=== PATIENT | male | born 1990 | race Native Hawaiian/Other Pacific Islander ===

== ENCOUNTER 2016-12-22 01:10 | Emergency (ER) | payer OTHER ==
[2016-12-22 01:23] VITALS: BP 121/62; PULSE 84; RESP 17; TEMP 98.7; O2SAT 98
--- NOTE | 2016-12-22 02:28 | ED PDOC ---
HPI: Psych/Substance Abuse Time Seen by Provider: 12/22/16 01:20 Chief Complaint (Nursing): Psychiatric Evaluation Chief Complaint (Provider): Suicidal Ideation History/Exam Limitations: no limitations Onset/Duration Of Symptoms: Hrs (earlier tonight) Suicide/Self Injury Attempted (Context): None Modifying Factor(s): Alcohol Additional Complaint(s): 26 year old male brought in by police presents to ED with complaints of suicidal ideation and has a past medical history of depression (compliant with medication). Patient admits to drinking and states that he drunkenly spoke of suicidal ideation to his roommate, who called the police. Police confirm they brought patient to ED for psychiatric evaluation after claims of suicidal ideation. Patient denies suicide attempt by ingestion and notes that he often speaks of suicide when intoxicated. PCP: [facility] Past Medical History Reviewed: Historical Data Vital Signs: Last Vital Signs Temp 98.7 F 12/22/16 01:17 Pulse 84 12/22/16 01:17 Resp 17 12/22/16 01:17 BP 121/62 12/22/16 01:17 Pulse Ox 98 12/22/16 01:17 - Medical History PMH: Depression Denies: Chronic Kidney Disease - Surgical History Surgical History: No Surg Hx - Family History Family History: States: No Known Family Hx - Social History Alcohol: Social - Allergies Allergies/Adverse Reactions: Allergies Allergy/AdvReac Type Severity Reaction Status Date / Time No Known Allergies Allergy Verified 12/22/16 01:23 Review of Systems ROS Statement: Except As Marked, All Systems Reviewed And Found Negative Psych: Positive for: Suicidal ideation. Negative for: Other ((-) suicide attempt) Physical Exam - Reviewed Nursing Documentation Reviewed: Yes Vital Signs Reviewed: Yes - Physical Exam Appears: Positive for: No Acute Distress. Negative for: Uncomfortable Skin: Positive for: Normal Color, Warm, Dry Eye Exam: Positive for: EOMI, Normal appearance, PERRL ENT: Positive for: Normal ENT Inspection Neck: Positive for: Normal, Painless ROM, Supple Cardiovascular/Chest: Positive for: Regular Rate, Rhythm Respiratory: Positive for: Normal Breath Sounds. Negative for: Respiratory Distress Gastrointestinal/Abdominal: Positive for: Normal Exam, Soft, Tenderness Back: Positive for: Normal Inspection Extremity: Positive for: Normal ROM. Negative for: Deformity Neurologic/Psych: Positive for: Alert, Oriented, Gait (steady). Negative for: Motor/Sensory Deficits, Aphasia (no slurred speech) - Laboratory Results Result Diagrams: 12/22/16 02:19 12/22/16 02:19 - ECG O2 Sat by Pulse Oximetry: 98 (RA) Pulse Ox Interpretation: Normal Medical Decision Making Medical Decision Makin Initial impression: depression, alcohol intoxication Initial plan: * Acetaminophen * EtOH serum * Labs * UDrug serum * Salicylate * Crisis eval * US Pt is cleared for discharge by Dr Roberson. Pt is alert and awake. Ambulatory with steady gait. Scribe Attestation: Documented by Jennifer Grady acting as a scribe for Haven Hyde MD. Scribe Attestation: All medical record entries made by the Scribe were at my direction and personally dictated by me. I have reviewed the chart and agree that the record accurately reflects my personal performance of the history, physical exam, medical decision making, and the department course for this patient. I have also personally directed, reviewed, and agree with the discharge instructions and disposition. Disposition - Clinical Impression Clinical Impression: Depression, Alcohol intoxication - Patient ED Disposition Is Patient to be Admitted: No Doctor Will See Patient In The: Office Counseled Patient/Family Regarding: Studies Performed, Diagnosis, Need For Followup - Disposition [facility]errals[facility] Disposition: Routine/Home Disposition Time: 05:14 Condition: GOOD Instructions: Depression (ED), Alcohol Intoxication (ED)
[2016-12-22 02:31] LABS: BASO # 0.1 K/uL (0.0-0.2); BASO % 1.2 % (0.0-2.0); EOS # 0.2 K/uL (0.0-0.7); EOS % 3.5 % (0.0-4.0); HEMATOCRIT 46.4 % (35.0-51.0); LYMPH # 2.1 K/uL (1.0-4.3); LYMPH % 34.8 % (20.0-40.0); MEAN CELL VOLUME 96.8 fl (80.0-94.0); MEAN CORPUSCULAR HEMOGLOBIN 32.6 pg (27.0-31.0); MEAN CORPUSCULAR HGB CONC 33.7 g/dL (33.0-37.0); MONO # 0.5 K/uL (0.0-0.8); MONO % 8.1 % (0.0-10.0); NEUT # 3.2 K/uL (1.8-7.0); NEUT % 52.4 % (50.0-75.0); WHITE BLOOD COUNT 6.1 K/uL (4.8-10.8)
[2016-12-22 02:34] LABS: RBC URINE < 1 /hpf (0-3); URINE BILIRUBIN NEGATIVE (NEGATIVE); URINE BLOOD NEGATIVE (NEGATIVE); URINE COLOR COLORLESS (YELLOW); URINE GLUCOSE (UA) 50 mg/dL (Normal); URINE KETONE NEGATIVE (NEGATIVE); URINE LEUKOCYTE ESTERASE NEG Leu/uL (Negative); URINE PROTEIN NEGATIVE (NEGATIVE); URINE UROBILINOGEN 0.2-1.0 mg/dL (0.2-1.0); WBC URINE < 1 /hpf (0-5)
[2016-12-22 02:46] LABS: ALCOHOL SERUM 205 mg/dl (0-10); BLOOD UREA NITROGEN 12 mg/dl (9-20); CALCIUM 8.9 mg/dL (8.4-10.2); CARBON DIOXIDE 21 mmol/L (22-30); CHLORIDE 109 mmol/L (98-107); GFR AFRICAN-AMERICAN > 60; GLUCOSE,RANDOM 94 mg/dL (75-110); POTASSIUM 3.9 MMOL/L (3.6-5.0); SODIUM 148 mmol/l (132-148)
== END 2016-12-22 05:21 | disposition home or self-care (01) ==
LOC: H.ER 01:10
DX: F32.9 Major depressive disorder, single episode, unspecified (principal); F10.129 Alcohol abuse with intoxication, unspecified; R45.851 Suicidal ideations; Y90.7 Blood alcohol level of 200-239 mg/100 ml

== ENCOUNTER 2016-12-23 01:30 | Emergency (ER) | payer OTHER ==
[2016-12-23 01:38] VITALS: BMI 28.7
[2016-12-23 02:39] LABS: BASO % 0.4 % (0.0-2.0); EOS # 0.1 K/uL (0.0-0.7); EOS % 2.7 % (0.0-4.0); HEMATOCRIT 48.1 % (35.0-51.0); LYMPH # 2.2 K/uL (1.0-4.3); LYMPH % 41.8 % (20.0-40.0); MEAN CELL VOLUME 96.9 fl (80.0-94.0); MEAN CORPUSCULAR HEMOGLOBIN 31.8 pg (27.0-31.0); MEAN CORPUSCULAR HGB CONC 32.8 g/dL (33.0-37.0); MEAN PLATELET VOLUME 7.3 fl (7.2-11.7); MONO # 0.4 K/uL (0.0-0.8); MONO % 7.6 % (0.0-10.0); NEUT # 2.5 K/uL (1.8-7.0); NEUT % 47.5 % (50.0-75.0); RED CELL DISTRIBUTION WIDTH 13.8 % (11.5-14.5); WHITE BLOOD COUNT 5.4 K/uL (4.8-10.8)
[2016-12-23 02:46] LABS: ALCOHOL SERUM 285 mg/dl (0-10); BLOOD UREA NITROGEN 15 mg/dl (9-20); CALCIUM 9.1 mg/dL (8.4-10.2); CARBON DIOXIDE 21 mmol/L (22-30); CHLORIDE 106 mmol/L (98-107); GFR AFRICAN-AMERICAN > 60; GLUCOSE,RANDOM 77 mg/dL (75-110); POTASSIUM 3.8 MMOL/L (3.6-5.0); SODIUM 146 mmol/l (132-148)
--- NOTE | 2016-12-23 03:05 | ED PDOC ---
HPI: Psych/Substance Abuse Time Seen by Provider: 12/23/16 01:37 Chief Complaint (Nursing): Psychiatric Evaluation Chief Complaint (Provider): Psychiatric Evaluation History Per: Patient History/Exam Limitations: intoxication Onset/Duration Of Symptoms: Days (x1) Current Symptoms Are (Timing): Still Present Modifying Factor(s): Alcohol Associated Symptoms: Suicidal Thoughts Additional History Per: EMS Additional Complaint(s): Ariel is a 26 y/o male who was brought to the ED by EMS for alcohol intoxication and complaints of suicidal ideation. He does not have a plan. Patient admits to drinking alcohol. PMD: None Past Medical History Reviewed: Historical Data, Nursing Documentation, Vital Signs Vital Signs: Last Vital Signs Temp 97.5 F L 12/23/16 01:40 Pulse 86 12/23/16 01:40 Resp 17 12/23/16 01:40 BP 124/68 12/23/16 01:40 Pulse Ox 97 12/23/16 01:40 - Medical History PMH: Depression Denies: Diabetes, Hepatitis, HIV, HTN, Chronic Kidney Disease, Seizures, Sexually Transmitted Disease - Surgical History Surgical History: No Surg Hx - Family History Family History: States: Unknown Family Hx - Social History Alcohol: > 2 Drinks/Day - Allergies Allergies/Adverse Reactions: Allergies Allergy/AdvReac Type Severity Reaction Status Date / Time No Known Allergies Allergy Verified 12/22/16 01:23 Review of Systems ROS Statement: Except As Marked, All Systems Reviewed And Found Negative Psych: Positive for: Suicidal ideation Physical Exam - Reviewed Nursing Documentation Reviewed: Yes Vital Signs Reviewed: Yes - Physical Exam Appears: Positive for: Non-toxic, No Acute Distress Head Exam: Positive for: ATRAUMATIC, NORMAL INSPECTION, NORMOCEPHALIC Skin: Positive for: Normal Color, Warm, Dry Eye Exam: Positive for: EOMI, Normal appearance, PERRL Neck: Positive for: Normal, Painless ROM, Supple Cardiovascular/Chest: Positive for: Regular Rate, Rhythm. Negative for: Murmur Respiratory: Positive for: Normal Breath Sounds. Negative for: Respiratory Distress Pulses-Radial (L): 2+ Pulses-Radial (R): 2+ Gastrointestinal/Abdominal: Positive for: Normal Exam, Soft. Negative for: Tenderness Back: Positive for: Normal Inspection. Negative for: L CVA Tenderness, R CVA Tenderness, Vertebral Tenderness Extremity: Positive for: Normal ROM. Negative for: Pedal Edema, Deformity Neurologic/Psych: Positive for: Alert (and awake), Gait (unsteady), Other ( Slurred speech) - Laboratory Results Result Diagrams: 12/23/16 02:34 12/23/16 02:34 - ECG O2 Sat by Pulse Oximetry: 97 (RA) Pulse Ox Interpretation: Normal Medical Decision Making Medical Decision Making: Initial Impression: Alcohol intoxication, suicidal ideation Time: 01:38 Initial Plan: --Alcohol serum --Urine drug screen --BMP --CBC --Pending crisis evaluation Accucheck was 63. Time: 5:14 --Dextrose 5% IV 1000 ml Scribe Attestation: Documented by Magda Laguna, acting as a scribe for Haven Hyde MD Provider Scribe Attestation: All medical record entries made by the Scribe were at my direction and personally dictated by me. I have reviewed the chart and agree that the record accurately reflects my personal performance of the history, physical exam, medical decision making, and the department course for this patient. I have also personally directed, reviewed, and agree with the discharge instructions and disposition. Disposition - Clinical Impression Clinical Impression: Depression, Alcohol intoxication - Patient ED Disposition Is Patient to be Admitted: Transfer of Care Counseled Patient/Family Regarding: Studies Performed, Diagnosis - Disposition Disposition: Transfer of Care Disposition Time: 07:00 Condition: FAIR Forms: How do you roll? (Maltese) Patient Signed Over To: Ricky Way III Handoff Comments: pending clinical sobriety and crisis eval
[2016-12-23] MEDS ORDERED: Multivitamin (MVI) 10 ML, Folic Acid 1 MG, Thiamine 100 MG in Dextrose 5%/0.45% NS 1,00... IV ONE (05:14)
[2016-12-23] MEDS ORDERED: THIAMINE IV ONE (05:45)
[2016-12-23] MEDS ORDERED: [UNRECOGNIZED DRUG - OTHER] IV ONE (05:45)
[2016-12-23] MEDS ORDERED: FOLIC ACID IV ONE (05:45)
[2016-12-23] MEDS ORDERED: DEXTROSE 5% IV ONE (05:45)
[2016-12-23] MEDS ORDERED: MULTIVITAMIN IV ONE (05:45)
--- NOTE | 2016-12-23 07:08 | ED PDOC ---
- Laboratory Results Result Diagrams: 12/23/16 02:34 12/23/16 02:34 - ECG O2 Sat by Pulse Oximetry: 97 (RA) Pulse Ox Interpretation: Normal Medical Decision Making Medical Decision Makin:00 Patient was signed out to me by Haven Hyde MD, pending clinical sobriety and crisis evaluation. Scribe Attestation: Documented by Dominique Sepulveda, acting as a scribe for Ricky Way D.O. Provider Scribe Attestation: All medical record entries made by the Scribe were at my direction and personally dictated by me. I have reviewed the chart and agree that the record accurately reflects my personal performance of the history, physical exam, medical decision making, and the department course for this patient. I have also personally directed, reviewed, and agree with the discharge instructions and disposition. Disposition - Clinical Impression Clinical Impression: Depression, Alcohol intoxication - Disposition Condition: FAIR Forms: [employer] (Danish)
[2016-12-23 08:15] VITALS: BP 100/70; RESP 18; TEMP 97.8
[2016-12-23 09:18] VITALS: PULSE 68; O2SAT 98
== END 2016-12-23 09:41 | disposition home or self-care (01) ==
LOC: H.ER 01:30
DX: F10.129 Alcohol abuse with intoxication, unspecified (principal); F32.9 Major depressive disorder, single episode, unspecified; R45.851 Suicidal ideations
CPT/HCPCS: 80048; 80320; 80324; 80345; 80346; 80349; 80353; 80358; 80361; 82948; 83992; 85025; 96374; 99284; J3411; J7070

== ENCOUNTER 2017-02-15 00:25 | Emergency (ER) | payer MEDICAID, OTHER ==
[2017-02-15 00:25] VITALS: BMI 20.9
[2017-02-15 00:43] VITALS: O2SAT 94
[2017-02-15 01:06] LABS: BASO # 0.1 K/uL (0.0-0.2); BASO % 1.4 % (0.0-2.0); EOS # 0.1 K/uL (0.0-0.7); EOS % 1.8 % (0.0-4.0); HEMOGLOBIN 16.9 g/dL (12.0-18.0); LYMPH # 2.1 K/uL (1.0-4.3); LYMPH % 35.8 % (20.0-40.0); MEAN CELL VOLUME 95.8 fl (80.0-94.0); MEAN CORPUSCULAR HEMOGLOBIN 31.9 pg (27.0-31.0); MEAN CORPUSCULAR HGB CONC 33.3 g/dL (33.0-37.0); MEAN PLATELET VOLUME 7.3 fl (7.2-11.7); MONO # 0.6 K/uL (0.0-0.8); MONO % 9.5 % (0.0-10.0); NEUT # 3.1 K/uL (1.8-7.0); NEUT % 51.5 % (50.0-75.0); RBC 5.29 Mil/uL (4.40-5.90); RED CELL DISTRIBUTION WIDTH 13.7 % (11.5-14.5)
[2017-02-15 01:30] LABS: URINE BILIRUBIN NEGATIVE (NEGATIVE); URINE BLOOD NEGATIVE (NEGATIVE); URINE CLARITY CLEAR (Clear); URINE COLOR STRAW (YELLOW); URINE GLUCOSE (UA) >=500 mg/dL (Normal); URINE LEUKOCYTE ESTERASE NEG Leu/uL (Negative); URINE NITRATE NEGATIVE (NEGATIVE); URINE PROTEIN NEGATIVE (NEGATIVE); URINE UROBILINOGEN 0.2-1.0 mg/dL (0.2-1.0)
[2017-02-15 01:47] LABS: ALB/GLOB RATIO 1.6 (1.0-2.1); ALBUMIN 4.8 g/dL (3.5-5.0); ALT/SGPT 42 U/L (21-72); AST/SGOT 38 U/L (17-59); BLOOD UREA NITROGEN 14 mg/dl (9-20); CALCIUM 9.1 mg/dL (8.4-10.2); GFR AFRICAN-AMERICAN > 60; GFR NON-AFRICAN AMERICAN > 60
[2017-02-15 02:01] LABS: BARBITURATES, UR NEGATIVE (NEGATIVE); BENZODIAZEPINES, UR NEGATIVE (NEGATIVE); OPIATES, UR NEGATIVE (NEGATIVE); PHENCYCLIDINE, UR NEGATIVE (NEGATIVE)
--- NOTE | 2017-02-15 05:32 | ED PDOC ---
HPI: Psych/Substance Abuse Time Seen by Provider: 02/15/17 00:47 Chief Complaint (Nursing): Psychiatric Evaluation Chief Complaint (Provider): pysch eval Additional Complaint(s): 26yo M in ED for eval of intoxication with SI. in ER states he isn't SI. Friend bought pt to ER for SI. pt with slurred speech and unstable gait. Past Medical History Reviewed: Historical Data, Nursing Documentation, Vital Signs Vital Signs: Last Vital Signs Temp 98.5 F 02/15/17 00:40 Pulse 94 H 02/15/17 00:40 Resp 16 02/15/17 00:40 BP 139/77 02/15/17 00:40 Pulse Ox 94 L 02/15/17 00:40 - Medical History PMH: Anxiety, Depression Denies: Diabetes, Hepatitis, HIV, HTN, Chronic Kidney Disease, Seizures, Sexually Transmitted Disease - Family History Family History: States: Unknown Family Hx - Home Medications Home Medications: Ambulatory Orders Medication Instructions Recorded Folic Acid 1 mg PO DAILY tab 01/04/17 Thiamine [Vitamin B1 Tab] 100 mg PO DAILY tab 01/04/17 - Allergies Allergies/Adverse Reactions: Allergies Allergy/AdvReac Type Severity Reaction Status Date / Time No Known Allergies Allergy Verified 02/15/17 00:39 Review of Systems ROS Statement: Except As Marked, All Systems Reviewed And Found Negative Constitutional: Negative for: Fever, Chills Physical Exam - Reviewed Nursing Documentation Reviewed: Yes Vital Signs Reviewed: Yes - Physical Exam Appears: Positive for: Well, Non-toxic, No Acute Distress Skin: Positive for: Normal Color, Warm, DRY Cardiovascular/Chest: Positive for: Regular Rate, Rhythm Respiratory: Positive for: CNT, Normal Breath Sounds Neurologic/Psych: Positive for: Alert, Oriented - Laboratory Results Result Diagrams: 02/15/17 01:02 02/15/17 01:02 - ECG O2 Sat by Pulse Oximetry: 94 - Progress ED Course And Treament: pt stable and cooperative pending crisis evaluation upon sobriety. Orders Category Date Time Status ALCOHOL SERUM Stat Chem 02/15/17 01:02 Completed COMP METABOLIC PANEL Stat Chem 02/15/17 01:02 Completed DRUG SCREEN, URINE Stat Chem 02/15/17 01:21 Completed Crisis Evaluation As Ordered Cons 02/15/17 00:48 Ordered CBC (WITH DIFFERENTIAL) Stat BAKARI 02/15/17 01:02 Completed 1:1 Observation CONT Pt Care 02/15/17 00:47 Active URINALYSIS Stat URINALYSIS 02/15/17 01:21 Completed Disposition - Clinical Impression Clinical Impression: Alcohol intoxication - Patient ED Disposition Is Patient to be Admitted: Transfer of Care - Disposition Disposition Time: 05:33 Condition: STABLE Patient Signed Over To: Liz Gallegos
--- NOTE | 2017-02-15 06:02 | ED PDOC ---
- Laboratory Results Result Diagrams: 02/15/17 01:02 02/15/17 01:02 - ECG O2 Sat by Pulse Oximetry: 94 Medical Decision Making Medical Decision Makin:00 Patient signed out to me by Essence Santos pending crisis evaluation. Reassess --07:00 Patient to be signed out to Dr. Hyde pending crisis evaluation. Scribe Attestation: Documented by Germán Ching acting as a scribe for Liz Gallegos MD. Provider Attestation: All medical record entries made by the Scribe were at my direction and personally dictated by me. I have reviewed the chart and agree that the record accurately reflects my personal performance of the history, physical exam, medical decision making, and the department course for this patient. I have also personally directed, reviewed, and agree with the discharge instructions and disposition. Disposition Discussed With : Haven Hyde Doctor Will See Patient In The: ED - Clinical Impression Clinical Impression: Alcohol intoxication - POA Present On Arrival: None - Disposition Referrals: [facility] [Outside] Disposition: Transfer of Care Disposition Time: 07:00 Condition: STABLE Instructions: Alcohol Intoxication (ED) Patient Signed Over To: Haven Hyde
--- NOTE | 2017-02-15 07:44 | ED PDOC ---
- Laboratory Results Result Diagrams: 02/15/17 01:02 02/15/17 01:02 - ECG O2 Sat by Pulse Oximetry: 94 Medical Decision Making Medical Decision Making: Patient was signed out to me by Dr. Gallegos at 7:00AM, pending sobriety, and crisis evaluation. 0940 Patient is alert and awake. Ambulated with steady gait. 0947 Patient is cleared for discharge by Dr Roberson. Scribe Attestation: Documented by Mari Tierney, acting as a scribe for Haven Hyde MD Provider Scribe Attestation: All medical record entries made by the Scribe were at my direction and personally dictated by me. I have reviewed the chart and agree that the record accurately reflects my personal performance of the history, physical exam, medical decision making, and the department course for this patient. I have also personally directed, reviewed, and agree with the discharge instructions and disposition. Disposition Doctor Will See Patient In The: Office Counseled Patient/Family Regarding: Studies Performed, Diagnosis, Need For Followup - Clinical Impression Clinical Impression: Alcohol intoxication - POA Present On Arrival: None - Disposition Referrals: [facility] [Outside] Disposition: Routine/Home Disposition Time: 09:49 Condition: GOOD Instructions: Alcohol Intoxication (ED)
[2017-02-15 07:51] VITALS: BP 131/63; PULSE 82; RESP 18; TEMP 98.7
== END 2017-02-15 10:05 | disposition home or self-care (01) ==
LOC: H.ER 00:25
DX: F10.129 Alcohol abuse with intoxication, unspecified (principal); F32.9 Major depressive disorder, single episode, unspecified; F41.9 Anxiety disorder, unspecified

== ENCOUNTER 2017-02-15 13:41 | Inpatient (IN) | payer MEDICAID ==
[2017-02-15 13:41] VITALS: BMI 20.9
[2017-02-15 13:45] VITALS: O2SAT 100
--- NOTE | 2017-02-15 14:07 | ED PDOC ---
HPI: Psych/Substance Abuse Time Seen by Provider: 02/15/17 13:56 Chief Complaint (Nursing): Psychiatric Evaluation Chief Complaint (Provider): crisis eval History Per: Patient Additional Complaint(s): 26-year-old male presents to emergency department for crisis evaluation. Patient admits to drinking alcohol today and states that he feels suicidal. He was seen earlier today and discharged. Upon leaving the emergency department after being discharged earlier, he went home and drank more and then called ambulance to come back to ED stating he felt suicidal again. Patient denies any associated drug use and he offers no acute medical complaints at this time. Past Medical History Reviewed: Historical Data, Nursing Documentation, Vital Signs Vital Signs: Last Vital Signs Temp 98.4 F 02/15/17 13:43 Pulse 94 H 02/15/17 13:43 Resp 19 02/15/17 13:43 BP 158/103 H 02/15/17 13:43 Pulse Ox 100 02/15/17 13:43 - Medical History PMH: Anxiety, Depression - Surgical History Surgical History: No Surg Hx - Family History Family History: States: No Known Family Hx - Living Arrangements Living Arrangements: With Friends/Others - Social History Current smoker - smoking cessation education provided: No Alcohol: Social Drugs: Denies - Home Medications Home Medications: Ambulatory Orders Medication Instructions Recorded Folic Acid [Folic Acid] 1 tab PO DAILY 02/15/17 - Allergies Allergies/Adverse Reactions: Allergies Allergy/AdvReac Type Severity Reaction Status Date / Time No Known Allergies Allergy Verified 02/15/17 00:39 Review of Systems ROS Statement: Except As Marked, All Systems Reviewed And Found Negative Psych: Positive for: Suicidal ideation, Other (etoh) Physical Exam - Reviewed Nursing Documentation Reviewed: Yes Vital Signs Reviewed: Yes - Physical Exam Appears: Positive for: Well, Non-toxic, No Acute Distress Skin: Negative for: Rash Eye Exam: Positive for: Normal appearance Cardiovascular/Chest: Positive for: Regular Rate, Rhythm Respiratory: Positive for: Normal Breath Sounds. Negative for: Wheezing, Respiratory Distress Back: Positive for: Normal Inspection Extremity: Positive for: Normal ROM Neurologic/Psych: Positive for: Alert, Oriented - ECG O2 Sat by Pulse Oximetry: 100 Pulse Ox Interpretation: Normal - Other Rad CXR X-Ray: Interpreted by Me, Viewed By Me X-Ray Interpretation: no acute finding Medical Decision Making Medical Decision Making: Time: 14:07 Plan: - Alcohol Serum - Urine Drug Screen - Crisis Evaluation - Chest X-Ray Patient was seen earlier today and had labs drawn. As per crisis counselor and psychiatrist emulsion operator Dr. Roberson, patient will be admitted. Patient agrees to sign himself in. Patient is medically stable for psychiatric admission Disposition - Clinical Impression Clinical Impression: Depression - Patient ED Disposition Is Patient to be Admitted: Yes - Disposition Disposition Time: 18:29 Condition: FAIR Forms: [employer] (Estonian) - Pt Status Changed To: Hospital Disposition Of: Inpatient - Admit Certification Admit to Inpatient:: After my assessment, the patient will require hospitalization for at least two midnights. This is because of the severity of symptoms shown, intensity of services needed, and/or the medical risk in this patient being treated as an outpatient. - POA Present On Arrival: None Results - Lab Results Lab Results: 02/15/17 02/15/17 16:36 15:35 Urine Opiates Screen Negative Urine Methadone Screen Negative Ur Barbiturates Screen Negative Ur Phencyclidine Scrn Negative Ur Amphetamines Screen Negative U Benzodiazepines Scrn Negative U Oth Cocaine Metabols Negative U Cannabinoids Screen Negative Alcohol, Quantitative 228 H
[2017-02-15] MEDS ORDERED: Magnesium Hydroxide Susp 30 ml UD PO PRN (20:49)
[2017-02-15] MEDS ORDERED: Alum-Mag Hydrox-Simethicone Susp (30 mL) PO PRN (20:49)
--- NOTE | 2017-02-15 21:38 | PCM.BM ---
Treatment Plan Problems - Problems identified on initial assessmt Feelings of Worthlessness Date Initiated: 02/15/17 Time Initiated: 21:37 Assessment reference: NA Status: Active Altered Sleep Patterns Date Initiated: 02/15/17 Time Initiated: 21:37 Assessment reference: NA Status: Active Treatment assets and liabiliti Patient Assests: adapts well, cooperative, educated, physically healthy, negotiates basic needs, cognitively intact Patient Liabilities: other (alcohol abuse) - Milieu Protocol Maintain good personal hygiene: daily Encourage regular showers, every shift Remind patient to perform daily oral care Conduct patient checks and document Observation sheet: Q15 minutes Maintain personal safety: every shift Educate patient to report safety concerns to staff, every shift Monitor environment for contraband/sharps Medication safety: Monitor for expected outcome, potential side effects: every shift, Assess barriers to learning: every shift, Assess readiness for medication education: every shift
[2017-02-15 23:31] VITALS: RESP 20
[2017-02-16 06:55] LABS: CHOLESTEROL 177 mg/dL (0-199)
--- NOTE | 2017-02-16 07:06 | CP.PCM.CON ---
History of Present Illness - History of Present Illness History of Present Illness: Attending: Dr Roberson Chief Complaint: Suicidal Ideation The patient was seen and examined in the Psychiatric Unit HPI: 26 years old Maltese male with hx of multiple visits to the ED for alcoholic abuse and intoxication with depression and suicide ideation. He again is brought to the ED after continuous drinking of alcohol, having a discussion with his girl friend, becoming depressed and feeling suicidal. he was seen at the ED treated and discharged. He continued to drinking and called EMS to return to the ED with suicide ideation. PMH: Depression and Anxiety; Suicide Ideation; Black outs PSH: Denies Surgical hx SH: No illegal drug use; Never smoked;abuses Alcohol College student; Live with friends FH: States: no Known family hx Allergies: NKDA Medication: reviewed Review of Systems - Constitutional Constitutional: absent: Anorexia, Chills, Fatigue, Fever, Headache - EENT Eyes: absent: Diplopia, Floaters, Loss of Peripheral Vision, Requires Corrective Lenses Ears: absent: Decreased Hearing, Ear Discharge, Ear Pain, Tinnitus Nose/Mouth/Throat: absent: Epistaxis, Nasal Congestion, Sinus Pain, Sinus Pressure, Sore Throat - Cardiovascular Cardiovascular: absent: Chest Pain, Dyspnea, Edema, Lightheadedness, Orthopnea - Respiratory Respiratory: absent: Dyspnea, Wheezing, Snoring, Stridor - Gastrointestinal Gastrointestinal: absent: Abdominal Pain, Bloating, Change in Bowel Habits, Diarrhea, Nausea, Vomiting - Genitourinary Genitourinary: absent: Dysuria, Flank Pain, Hematuria - Musculoskeletal Musculoskeletal: absent: Arthralgias, Back Pain, Muscle Weakness, Numbness - Integumentary Integumentary: Swelling. absent: Skin Ulcer, Sores, Striae - Neurological Neurological: absent: Confusion, Dizziness, Numbness, Focal Weakness, Weakness - Psychiatric Psychiatric: absent: Hopelessness, Panic Attacks, Paranoia - Endocrine Endocrine: absent: Palpitations, Polydipsia, Polyphagia, Polyuria - Hematologic/Lymphatic Hematologic: absent: Easy Bleeding, Easy Bruising Past Patient History - Past Social History Chewing Tobacco Use: No Cigar Use: No Alcohol: Social Drugs: Denies, Inhalants Home Situation {Lives}: Friends - CARDIAC Hx Cardiac Disorders: No Hx Hypertension: No - PULMONARY Hx Respiratory Disorders: No Hx Tuberculosis: No - NEUROLOGICAL Hx Neurological Disorder: No Hx Seizures: No - HEENT Hx HEENT Problems: No - RENAL Hx Chronic Kidney Disease: No - ENDOCRINE/METABOLIC Hx Endocrine Disorders: No - HEMATOLOGICAL/ONCOLOGICAL Hx Blood Disorders: No Hx Human Immunodeficiency Virus (HIV): No - INTEGUMENTARY Hx Dermatological Problems: No - MUSCULOSKELETAL/RHEUMATOLOGICAL Hx Musculoskeletal Disorders: No - GASTROINTESTINAL Hx Gastrointestinal Disorders: No - GENITOURINARY/GYNECOLOGICAL Hx Genitourinary Disorders: No Hx Sexually Transmitted Disorders: No - PSYCHIATRIC Hx Emotional Abuse: No Hx Physical Abuse: No Hx Sexual Abuse: No Hx Substance Use: No - SURGICAL HISTORY Hx Surgeries: No - ANESTHESIA Hx Anesthesia: No Meds Allergies/Adverse Reactions: Allergies Allergy/AdvReac Type Severity Reaction Status Date / Time No Known Allergies Allergy Verified 02/15/17 00:39 - Medications Medications: Current Medications Acetaminophen (Tylenol 325mg Tab) 650 mg PO Q4 PRN PRN Reason: Pain, moderate (4-7) Al Hydrox/Mg Hydrox/Simethicone (Maalox Plus 30 Ml) 30 ml PO Q4 PRN PRN Reason: Dyspepsia Folic Acid (Folic Acid) 1 mg PO DAILY BERNIE Lorazepam (Ativan) 2 mg IM Q4 PRN PRN Reason: Anxiety/Agitation,Unable PO Lorazepam (Ativan) 1 mg PO Q4 PRN PRN Reason: Anxiety/Agitation Last Admin: 02/16/17 02:54 Dose: 1 mg Lorazepam (Ativan) 1 mg PO TID BERNIE Magnesium Hydroxide (Milk Of Magnesia) 30 ml PO HS PRN PRN Reason: Constipation Multivitamins/Minerals (Therapeutic-M Tab) 1 tab PO DAILY BERNIE Thiamine HCl (Vitamin B1 Tab) 100 mg PO DAILY BERNIE Trazodone HCl (Desyrel) 50 mg PO HS PRN PRN Reason: Insomnia Last Admin: 02/15/17 22:32 Dose: 50 mg Physical Exam - Constitutional Appears: No Acute Distress - Head Exam Head Exam: ATRAUMATIC, NORMAL INSPECTION, NORMOCEPHALIC - Eye Exam Eye Exam: EOMI, Normal appearance - ENT Exam ENT Exam: Mucous Membranes Moist, Normal Exam, Normal External Ear Exam - Neck Exam Neck exam: Positive for: Full Rom, Normal Inspection. Negative for: Lymphadenopathy, Tenderness - Respiratory Exam Respiratory Exam: Clear to Auscultation Bilateral. absent: Rales, Rhonchi, Wheezes - Cardiovascular Exam Cardiovascular Exam: REGULAR RHYTHM, RRR, +S1, +S2 - GI/Abdominal Exam GI & Abdominal Exam: Normal Bowel Sounds, Soft. absent: Mass, Organomegaly, Tenderness - Rectal Exam Rectal Exam: Deferred - Extremities Exam Extremities exam: Positive for: full ROM, normal inspection. Negative for: calf tenderness, pedal edema - Back Exam Back exam: NORMAL INSPECTION. absent: CVA tenderness (L), CVA tenderness (R) - Neurological Exam Neurological exam: Alert, CN II-XII Intact, Oriented x3, Reflexes Normal - Psychiatric Exam Psychiatric exam: Normal Affect, Normal Mood - Skin Skin Exam: Dry, Intact, Normal Color, Warm Results - Vital Signs Recent Vital Signs: Last Vital Signs Temp 98.8 F 02/15/17 21:31 Pulse 74 02/15/17 21:31 Resp 20 02/15/17 21:31 BP 129/79 02/15/17 21:31 Pulse Ox 100 02/15/17 18:30 - Labs Labs: Laboratory Results - last 24 hr 02/15/17 02/15/17 02/16/17 15:35 16:36 05:30 Triglycerides 142 D Cholesterol 177 HDL Cholesterol 82 H Urine Opiates Screen Negative Urine Methadone Screen Negative Ur Barbiturates Screen Negative Ur Phencyclidine Scrn Negative Ur Amphetamines Screen Negative U Benzodiazepines Scrn Negative U Oth Cocaine Metabols Negative U Cannabinoids Screen Negative Alcohol, Quantitative 228 H Assessment & Plan - Assessment and Plan (Free Text) Assessment: #. Depressive Disorder #. Alcohol Intoxication Plan: 26 years old Maltese male with hx of multiple visits to the ED for alcoholic abuse and intoxication with depression and suicide ideation. He again is brought to the ED after continuous drinking of alcohol, having a discussion with his girl friend, becoming depressed and feeling suicidal. he was seen at the ED treated and discharged. He continued to drinking and called EMS to return to the ED with suicide ideation. #. Depressive Disorder with suicidal ideation - Psychiatric management #. Alcohol Intoxication - Alcohol withdrawal precaution - Thiamine - Folic Acid - Ativan for Agitation #. Code Status: Full - Date & Time Date: 02/16/17 Time: 07:06
[2017-02-16] MEDS: Multivitamin With Minerals Tab PO SCH (09:55)
--- NOTE | 2017-02-16 13:51 | PCM.PSYCH ---
Initial Psychiatric Evaluation - Initial Psychiatric Evaluation Type of Admission: Voluntary Legal Status: Capacity Chief Complaint (in patient's own words): I had some stressors so I started drinking Patient's Reaction to Hospitalization: pt agreed to get help History of Present Illness and Precipitating Events: 26Y/O MALE BROUGHT TO ER DUE TO HAVING SI WITH NO SPECIFIC PLAN. WHILE INTOXICTED, PT HAS BEEN RECENTLY ABOUT A MONTH AGO DISCHARGED FROM THE PSYCHIATRIC UNIT WITH A SIMILAR PRESENTATION PT REPORTED BEING RECENTLY OVERWHELMED DUE TO BREAKING UP WITH HIS GIRLFRIEND, LOOSING HIS JOB AND HAVING CONFLICTS WITH HIS PARENTS, PT REPORTED RECENTLY HAS BEEN USING INCREASING AMOUNT OF ALCOHOL AT CURRENT MENTAL STATUS DENIED ANY SUICIDAL OR HOMICIDAL IDEATIONS, DENIED CHANGES IN ALEEP OR APPETITE DENIED MANIC OR PSYCHOTIC SYMPTOMS Current Medications: Active Medications Generic Name Dose Route Start Last Admin Trade Name Freq PRN Reason Stop Dose Admin Acetaminophen 650 mg 02/15/17 20:49 Tylenol 325mg Tab PO Q4 PRN Pain, moderate (4-7) Al Hydrox/Mg Hydrox/Simethicone 30 ml 02/15/17 20:49 Maalox Plus 30 Ml PO Q4 PRN Dyspepsia Folic Acid 1 mg 02/16/17 09:00 02/16/17 09:55 Folic Acid PO 1 mg DAILY BERNIE Administration Lorazepam 2 mg 02/15/17 20:49 Ativan IM Q4 PRN Anxiety/Agitation,Unable PO Lorazepam 1 mg 02/15/17 20:49 02/16/17 02:54 Ativan PO 1 mg Q4 PRN Administration Anxiety/Agitation Lorazepam 1 mg 02/16/17 09:00 02/16/17 09:49 Ativan PO 1 mg TID BERNIE Administration Magnesium Hydroxide 30 ml 02/15/17 20:49 Milk Of Magnesia PO HS PRN Constipation Multivitamins/Minerals 1 tab 02/16/17 09:00 02/16/17 09:55 Therapeutic-M Tab PO 1 tab DAILY BERNIE Administration Thiamine HCl 100 mg 02/16/17 09:00 02/16/17 09:55 Vitamin B1 Tab PO 100 mg DAILY BERNIE Administration Trazodone HCl 50 mg 02/15/17 21:09 02/15/17 22:32 Desyrel PO 50 mg HS PRN Administration Insomnia Past Psychiatric History - Past Psychiatric History Explanation of prior treatment: ONE PREVIOUS PSYCHIATRIC HOSPITALIZATION AT [facility] ONE MONTH AGO PT SIGNED 49 AND DID NOT FOLLOW UP History of ETOH/Drug Use: ALCOHOL USE SINCE AGE 21 History of Family Illness: DENIED Pertinent Medical Hx (Current Medical&Sleep Prob, Allergies): Allergies Allergy/AdvReac Type Severity Reaction Status Date / Time No Known Allergies Allergy Verified 02/15/17 00:39 Folic Acid [Folic Acid] 1 tab PO DAILY 02/15/17 Mental Status Examination - Personal Presentation Personal Presentation: Looks stated age - Affect Affect: Constricted - Motor Activity Motor Activity: Calm - Reliability in Providing Information Reliability in Providing Information: Fair - Speech Speech: Organized - Mood Mood: Anxious, Neutral - Formal Thought Process Formal Thought Process: No Impairment - Hallucinations/Delusions Additional comments: DENIED PSYCHOTIC SYMPTOMS OR PERCEPTUAL DISTURBANCES, NON ELICITED - Obsessions/Compulsions Obsessions: No Compulsions: No - Cognitive Functions Orientation: Person, Place Sensorium: Alert Attention/Concentration: Attentive Judgement: Imparied, as evidence by: Lack of insight into illness Memory: Recent intact, as evidence by: Ability to recall events of the day - Risk Risk: Withdrawal, Diminished functioning - Strength & Assets Inventory Strength & Assets Inventory: Family support - Limitations Additional comments: POOR INSIGHT DSM 5 DX - DSM 5 DSM 5 Diagnosis: 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
--- NOTE | 2017-02-16 15:47 | RAD ---
HISTORY: clearance COMPARISON: No prior. FINDINGS: LUNGS: No active pulmonary disease. PLEURA: No significant pleural effusion identified, no pneumothorax apparent. CARDIOVASCULAR: Normal. OSSEOUS STRUCTURES: No significant abnormalities. VISUALIZED UPPER ABDOMEN: Normal. OTHER FINDINGS: None. IMPRESSION: No active disease. Concordant results with the preliminary interpretation rendered by the emergency department physician procedure.
[2017-02-16 16:32] VITALS: BP 131/74; PULSE 105; TEMP 98.9
[2017-02-16 16:35] LABS: T4 8.44 ug/dl (5.5-11.0)
[2017-02-17] MEDS: Multivitamin With Minerals Tab PO SCH (09:44)
--- NOTE | 2017-02-17 09:58 | PCM.PYCHDC ---
Mental Status Examination - Mental Status Examination Orientation: Person, Place, Situation Memory: Intact Mood: Neutral Affect: Broad Speech: Appropriate Attention: WNL Concentration: WNL Association: WNL Fund of Knowledge: WNL Formal Thought Process: No Impairment Description of patient's judgement and insight: partial insight and fair judgement Psychotic Thoughts and Behaviors: pt denied perceptual disturbances and non ellicited Suicidal Ideation: No Current Homicidal Ideation?: No Discharge Summary - Discharge Note Reason for Hospitalization: 6Y/O MALE BROUGHT TO ER DUE TO HAVING SI WITH NO SPECIFIC PLAN. WHILE INTOXICTED, PT HAS BEEN RECENTLY ABOUT A MONTH AGO DISCHARGED FROM THE PSYCHIATRIC UNIT WITH A SIMILAR PRESENTATION PT REPORTED BEING RECENTLY OVERWHELMED DUE TO BREAKING UP WITH HIS GIRLFRIEND, LOOSING HIS JOB AND HAVING CONFLICTS WITH HIS PARENTS, PT REPORTED RECENTLY HAS BEEN USING INCREASING AMOUNT OF ALCOHOL AT CURRENT MENTAL STATUS DENIED ANY SUICIDAL OR HOMICIDAL IDEATIONS, DENIED CHANGES IN ALEEP OR APPETITE DENIED MANIC OR PSYCHOTIC SYMPTOMS Laboratory Data: Abnormal Lab Results 02/16/17 02/16/17 05:30 15:15 Hemoglobin A1c 5.2 Thyroxine (T4) 8.44 TSH 3rd Generation 10.00 H Consultations:: List each consultation separately and include: 1. Reason for request. 2. Findings. 3. Follow-up Consultations: family practice Summary of Hospital Course include:: 1. Description of specific treatment plan utilized for patients during their course of treatmen. 2. Summarize the time- course for resolution of acute symptoms and/or regressed behaviors. 3. Describe issues identified and worked on during hospitalization. 4. Describe medication utilized. 5. Describe medical problems identified and treated. 6. Reassessment of suicide risk Summary of Hospital Course: pt on admission was started on ativan protocol for symptoms and signs of alcohol withdrawal, vital signs were monitored pt was offered to be started on antidepressant yet he declined motivational and group therapy was provided parents were informed about treatment plan by healthcare social worker upon pt consent referrals to out patient rehab [id number] on discharge pt mental status was stable, denied suicidal or homicidal ideations denied perceptual disturbances - Final Diagnosis (DSM 5) Condition upon Discharge: FAIR Disposition: HOME/ ROUTINE Follow-up [facility] - Antipsychotic Medications Pt discharged on 2 or more routine antipsychotic medications: No
== END 2017-02-17 12:00 | disposition home or self-care (01) | DRG 895 ==
LOC: H.ER 13:41 → H.ERHOLD 18:07 → H.PSYCH 21:12
PROVIDERS: ADMIT Psychiatry & Neurology Psychiatry; ATTEND Psychiatry & Neurology Psychiatry
PROC: HZ57ZZZ Individual Psychotherapy for Substance Abuse Treatment, Motivational Enhancement (ICD-10-PCS; principal; 2017-02-15)
PROC: GZHZZZZ Group Psychotherapy (ICD-10-PCS; 2017-02-15)
DX: F10.14 Alcohol abuse with alcohol-induced mood disorder (principal); R45.851 Suicidal ideations; F10.129 Alcohol abuse with intoxication, unspecified; Y90.7 Blood alcohol level of 200-239 mg/100 ml

== ENCOUNTER 2017-02-17 17:31 | Emergency (ER) | payer MEDICAID ==
[2017-02-17 17:34] VITALS: RESP 16; TEMP 98
[2017-02-17] MEDS ORDERED: Multivitamin (MVI) 10 ML, Thiamine 100 MG in Sodium Chloride 0.9% 1,000 ML IV ONE (17:49)
[2017-02-17 17:51] VITALS: BP 125/68; PULSE 64; O2SAT 94
--- NOTE | 2017-02-17 18:13 | ED PDOC ---
HPI: Psych/Substance Abuse Time Seen by Provider: 02/17/17 17:39 Chief Complaint (Nursing): Alcohol Ingestion Chief Complaint (Provider): Alcohol intoxication ED Caveat: Intoxicated History Per: Patient, EMS History/Exam Limitations: no limitations Onset/Duration Of Symptoms: Days (1) Additional Complaint(s): Patient is a 26 y/o male well known to the ED for alcohol abuse and suicidal ideation, with no significant past medical history, who was brought to the emergency department by EMS for acute alcohol intoxication. According to EMS, [place] and were called by Police for evaluation. Admits to drinking alcohol but otherwise cannot give any other history. Of note, patient was discharged from the psychiatric floor today. PCP: none provided. Past Medical History Reviewed: Historical Data, Nursing Documentation, Vital Signs Vital Signs: Last Vital Signs Temp 98.0 F 02/17/17 17:33 Pulse 64 02/17/17 17:48 Resp 16 02/17/17 17:48 BP 125/68 02/17/17 17:48 Pulse Ox 94 L 02/17/17 17:48 - Medical History PMH: Anxiety, Depression Denies: Diabetes, Hepatitis, HIV, HTN, Chronic Kidney Disease, Seizures, Sexually Transmitted Disease - Family History Family History: States: Unknown Family Hx - Home Medications Home Medications: Ambulatory Orders Medication Instructions Recorded Folic Acid 1 tab PO DAILY 02/15/17 - Allergies Allergies/Adverse Reactions: Allergies Allergy/AdvReac Type Severity Reaction Status Date / Time No Known Allergies Allergy Verified 02/15/17 00:39 Review of Systems Review Of Systems: ROS cannot be obtained secondary to pt's inabilty to answer questions. (due to intoxicated state) Psych: Positive for: Other (EtOH intoxication) Physical Exam - Reviewed Nursing Documentation Reviewed: Yes Vital Signs Reviewed: Yes - Physical Exam Appears: Positive for: In Acute Distress (obtunded, intoxicated) Head Exam: Positive for: ATRAUMATIC, NORMOCEPHALIC Skin: Positive for: Warm, Dry (mild flushing to face) Eye Exam: Positive for: Conjunctival injection, Other (roving eye movement and slow pupil response) ENT: Positive for: Pharynx Is (clear), Other (tacky mucus membranes) Neck: Positive for: Painless ROM, Supple Cardiovascular/Chest: Positive for: Regular Rate, Rhythm, Chest Non Tender. Negative for: Murmur Respiratory: Positive for: Normal Breath Sounds. Negative for: Wheezing Gastrointestinal/Abdominal: Positive for: Soft. Negative for: Tenderness Back: Positive for: Normal Inspection. Negative for: Decreased ROM Extremity: Positive for: Normal ROM. Negative for: Deformity Lymphatic: Negative for: Adenopathy Neurologic/Psych: Positive for: Other (lethargic, responsive to loud verbal stimuli but then goes back to sleep, slurred speech, limited answers to questions). Negative for: Alert, Oriented, Motor/Sensory Deficits - Laboratory Results Result Diagrams: 02/17/17 18:11 02/17/17 18:11 - ECG O2 Sat by Pulse Oximetry: 94 (RA) Pulse Ox Interpretation: Normal (low) Medical Decision Making Medical Decision Making: Time: 17:48 Initial Impression: Alcohol intoxication Initial Plan: Alcohol Serum test CMP Urine Drug Screening Magnesium Phosphorous ED Urine Dipstick CBC Normal Saline 1 L IV IV Insertion Reevaluation 7p Pt pulled out IV and attempted to get out of bed. 1:1 observation ordered BAL elevated. No emergently significant lab abnormalities. 2030 Pt tried to get out of bed again. Unable to redirect. Haldol/Ativan ordered for acute alcohol induced psychosis. Scribe Attestation: Documented by Mary Carmen Horton, acting as a scribe for Leila Baxter MD. Provider Scribe Attestation: All medical record entries made by the Scribe were at my direction and personally dictated by me. I have reviewed the chart and agree that the record accurately reflects my personal performance of the history, physical exam, medical decision making, and the department course for this patient. I have also personally directed, reviewed, and agree with the discharge instructions and disposition. Disposition - Clinical Impression Clinical Impression: Alcohol abuse with alcohol-induced disorder, Depression - Disposition Referrals: Alcoholics Anonymous [Outside] [facility] [Outside] Disposition: Transfer of Care Disposition Time: 00:00 Condition: STABLE Patient Signed Over To: Nir Conrad Handoff Comments: Pending sobriety and psych eval and final ER disposition
[2017-02-17 18:14] LABS: BASO # 0.1 K/uL (0.0-0.2); BASO % 1.1 % (0.0-2.0); EOS # 0.1 K/uL (0.0-0.7); EOS % 1.8 % (0.0-4.0); LYMPH # 1.8 K/uL (1.0-4.3); LYMPH % 30.5 % (20.0-40.0); MEAN CELL VOLUME 95.7 fl (80.0-94.0); MEAN CORPUSCULAR HEMOGLOBIN 32.3 pg (27.0-31.0); MEAN CORPUSCULAR HGB CONC 33.7 g/dL (33.0-37.0); MEAN PLATELET VOLUME 7.4 fl (7.2-11.7); MONO # 0.6 K/uL (0.0-0.8); MONO % 9.5 % (0.0-10.0); NEUT # 3.4 K/uL (1.8-7.0); NEUT % 57.1 % (50.0-75.0); NRBC % 0.2 % (0.0-0.0); RED CELL DISTRIBUTION WIDTH 13.1 % (11.5-14.5)
[2017-02-17 18:39] LABS: ABG ALLEN TEST YES; ARTERIAL BLOOD GAS HCO3 27.5 mmol/L (21-28); ARTERIAL BLOOD GAS PH 7.44 (7.35-7.45); ARTERIAL BLOOD GAS PO2 108 mm/Hg (80-100)
[2017-02-17 18:45] LABS: ALB/GLOB RATIO 1.5 (1.0-2.1); ALCOHOL SERUM 358 mg/dl (0-10); ALKALINE PHOSPHATASE 56 U/L (38-126); ALT/SGPT 33 U/L (21-72); AST/SGOT 33 U/L (17-59); BILIRUBIN,TOTAL 1.3 mg/dl (0.2-1.3); BLOOD UREA NITROGEN 10 mg/dl (9-20); CALCIUM 9.2 mg/dL (8.4-10.2); CARBON DIOXIDE 24 mmol/L (22-30); CHLORIDE 102 mmol/L (98-107); GFR AFRICAN-AMERICAN > 60; GLUCOSE,RANDOM 96 mg/dL (75-110); MAGNESIUM 2.4 MG/DL (1.6-2.3); PHOSPHOROUS 3.4 mg/dl (2.5-4.5); POTASSIUM 3.7 MMOL/L (3.6-5.0); SODIUM 141 mmol/l (132-148); TOTAL PROTEIN 8.1 G/DL (6.3-8.2)
[2017-02-17 19:11] LABS: URINE BACTERIA RARE (<OCC); URINE BILIRUBIN NEGATIVE (NEGATIVE); URINE COLOR YELLOW (YELLOW); URINE GLUCOSE (UA) 150 mg/dL (Normal); URINE KETONE NEGATIVE (NEGATIVE); URINE PROTEIN NEGATIVE (NEGATIVE); URINE UROBILINOGEN 0.2-1.0 mg/dL (0.2-1.0); WBC URINE 14 /hpf (0-5)
[2017-02-17 19:58] LABS: RBC URINE 8 /hpf (0-3); URINE BLOOD SMALL (NEGATIVE); URINE LEUKOCYTE ESTERASE SMALL Leu/uL (Negative)
--- NOTE | 2017-02-18 04:24 | ED PDOC ---
- Laboratory Results Result Diagrams: 02/17/17 18:11 02/17/17 18:11 - ECG O2 Sat by Pulse Oximetry: 94 (RA) Medical Decision Making Medical Decision Makin Patient signed out from Dr. Baxter to me pending crisis evaluation. 545 PT. awake and alert, cleared by crisis Dr. Evans w/ alcohol use disorder. No SI/ HI at this time. Scribe Attestation: Documented by Jennifer Grady acting as a scribe for Nir Conrad MD. Scribe Attestation: All medical record entries made by the Scribe were at my direction and personally dictated by me. I have reviewed the chart and agree that the record accurately reflects my personal performance of the history, physical exam, medical decision making, and the department course for this patient. I have also personally directed, reviewed, and agree with the discharge instructions and disposition. Disposition - Clinical Impression Clinical Impression: Alcohol abuse with alcohol-induced disorder, Depression - POA Present On Arrival: None - Disposition Referrals: Alcoholics Anonymous [Outside] [facility] [Outside] Disposition: Routine/Home Disposition Time: 05:48 Condition: STABLE Instructions: Alcohol Use Disorder (ED) Forms: [employer] (Pashto)
--- NOTE | 2017-02-18 18:27 | CARD ---
APPROVED REPORT EKG Measurement Heart [id number] <Conclusion> Normal sinus rhythm Early repolarization Normal ECG
== END 2017-02-18 06:03 | disposition home or self-care (01) ==
LOC: H.ER 17:31
DX: F10.129 Alcohol abuse with intoxication, unspecified (principal); F32.9 Major depressive disorder, single episode, unspecified; F41.9 Anxiety disorder, unspecified; R45.851 Suicidal ideations
CPT/HCPCS: 36600; 80053; 80320; 80324; 80345; 80346; 80349; 80353; 80358; 80361; 81003; 82803; 82948; 83735; 83992; 84100; 85025; 93005; 96365; 96366; 96372; 96375; 99282; J1630; J2060; J2405; J3411; J7040

== ENCOUNTER 2017-05-23 23:28 | Emergency (ER) | payer OTHER ==
[2017-05-23 23:36] VITALS: BP 120/79; PULSE 88; RESP 16; TEMP 98.9; O2SAT 99
[2017-05-24 00:17] LABS: BASO # 0.1 K/uL (0.0-0.2); BASO % 0.5 % (0.0-2.0); EOS # 0.1 K/uL (0.0-0.7); EOS % 0.6 % (0.0-4.0); LYMPH # 0.9 K/uL (1.0-4.3); LYMPH % 9.5 % (20.0-40.0); MEAN CELL VOLUME 91.9 fl (80.0-94.0); MEAN CORPUSCULAR HEMOGLOBIN 31.6 pg (27.0-31.0); MEAN CORPUSCULAR HGB CONC 34.4 g/dL (33.0-37.0); MEAN PLATELET VOLUME 7.8 fl (7.2-11.7); MONO # 0.3 K/uL (0.0-0.8); MONO % 3.3 % (0.0-10.0); NEUT # 8.2 K/uL (1.8-7.0); NEUT % 86.1 % (50.0-75.0); NRBC % 0.6 % (0.0-0.0); PLATELET COUNT 282 K/uL (130-400); RBC 5.68 Mil/uL (4.40-5.90); RED CELL DISTRIBUTION WIDTH 12.2 % (11.5-14.5); WHITE BLOOD COUNT 9.5 K/uL (4.8-10.8)
[2017-05-24 00:27] LABS: ALB/GLOB RATIO 1.4 (1.0-2.1); ALBUMIN 4.8 g/dL (3.5-5.0); ALT/SGPT 32 U/L (21-72); AST/SGOT 30 U/L (17-59); BLOOD UREA NITROGEN 13 mg/dl (9-20); CALCIUM 9.3 mg/dL (8.4-10.2); GFR AFRICAN-AMERICAN > 60; GFR NON-AFRICAN AMERICAN > 60
--- NOTE | 2017-05-24 00:28 | ED PDOC ---
HPI: Psych/Substance Abuse Time Seen by Provider: 05/23/17 23:46 Chief Complaint (Nursing): Psychiatric Evaluation Chief Complaint (Provider): Crisis Eval ED Caveat: Intoxicated History/Exam Limitations: intoxication Onset/Duration Of Symptoms: Mins (just prior to arrival) Current Symptoms Are (Timing): Still Present Additional Complaint(s): 27 yo male, brought in by EMS with HPD, with a history of alcohol abuse and depression, presents to the ED after calling a female named Melissa, stating that he wanted to hurt himself, onset of prior to arrival. As per patient, he denies any SI or HI, but admits to drinking alcohol prior. Past Medical History Reviewed: Historical Data, Nursing Documentation, Vital Signs Vital Signs: Last Vital Signs Temp 98.9 F 05/23/17 23:29 Pulse 88 05/23/17 23:29 Resp 16 05/23/17 23:29 BP 120/79 05/23/17 23:29 Pulse Ox 99 05/23/17 23:29 - Medical History PMH: Anxiety, Depression Denies: Diabetes, Hepatitis, HIV, HTN, Chronic Kidney Disease, Seizures, Sexually Transmitted Disease - Surgical History Surgical History: No Surg Hx - Family History Family History: States: Unknown Family Hx - Social History Current smoker - smoking cessation education provided: No Ex-Smoker (has not smoked in the last 12 months): No Alcohol: Social Drugs: Denies - Home Medications Home Medications: Ambulatory Orders Medication Instructions Recorded Folic Acid 1 tab PO DAILY 02/15/17 - Allergies Allergies/Adverse Reactions: Allergies Allergy/AdvReac Type Severity Reaction Status Date / Time No Known Allergies Allergy Verified 02/15/17 00:39 Review of Systems ROS Statement: Except As Marked, All Systems Reviewed And Found Negative Review Of Systems: ROS cannot be obtained secondary to pt's inabilty to answer questions. (patient denies any complaints but is unreliable because the patient is currently intoxicated.) Physical Exam - Reviewed Nursing Documentation Reviewed: Yes Vital Signs Reviewed: Yes - Physical Exam Appears: Positive for: Well, Non-toxic, No Acute Distress Head Exam: Positive for: ATRAUMATIC, NORMAL INSPECTION, NORMOCEPHALIC Skin: Positive for: Normal Color, Warm, DRY Eye Exam: Positive for: EOMI, Normal appearance, PERRL ENT: Positive for: Normal ENT Inspection Neck: Positive for: Normal, Painless ROM Cardiovascular/Chest: Positive for: Regular Rate, Rhythm. Negative for: Murmur Respiratory: Positive for: Normal Breath Sounds. Negative for: Respiratory Distress Gastrointestinal/Abdominal: Positive for: Normal Exam, Soft. Negative for: Tenderness Back: Positive for: Normal Inspection. Negative for: L CVA Tenderness, R CVA Tenderness Extremity: Positive for: Normal ROM. Negative for: Pedal Edema, Deformity Neurologic/Psych: Positive for: Alert, Oriented, Other (speech is slurred). Negative for: Motor/Sensory Deficits - Laboratory Results Result Diagrams: 05/24/17 00:11 05/24/17 00:11 - ECG O2 Sat by Pulse Oximetry: 99 (RA) Pulse Ox Interpretation: Normal Medical Decision Making Medical Decision Making: Time: --23:49 Impression: --27 yo male with possible suicidal ideation in setting of known depression and alcohol abuse Plan: --Drug Screen, urine --crisis eval --ED urine dip --Labs --1:1 Obs for Suicide Precaution --Accucheck Reassess --03:52 Patient was evaluated by crisis and is stable for discharge. Diagnosis: Alcohol induced mood disorder Scribe Attestation: Documented by Germán Ching acting as a scribe for Haim Wright MD. Provider Attestation: All medical record entries made by the Scribe were at my direction and personally dictated by me. I have reviewed the chart and agree that the record accurately reflects my personal performance of the history, physical exam, medical decision making, and the department course for this patient. I have also personally directed, reviewed, and agree with the discharge instructions and disposition. Disposition - Clinical Impression Clinical Impression: Alcohol-induced mood disorder - Patient ED Disposition Is Patient to be Admitted: No - Disposition Disposition: Routine/Home Disposition Time: 03:52 Condition: STABLE Instructions: Alcohol Abuse and Alcoholism (DC) Forms: [employer] (Mosotho)
[2017-05-24 02:29] LABS: EOSINOPHIL 2 % (0-7); LARGE PLATELETS PRESENT; LYMPHOCYTE 11 % (20-50); MONOCYTE 3 % (0-10); NEUTROPHIL 84 % (42-75); PLATELET ESTIMATE NORMAL (NORMAL); TOTAL CELLS COUNTED 100
== END 2017-05-24 04:30 | disposition home or self-care (01) ==
LOC: H.ER 23:28
DX: F10.94 Alcohol use, unspecified with alcohol-induced mood disorder (principal); F32.9 Major depressive disorder, single episode, unspecified; F41.9 Anxiety disorder, unspecified

== ENCOUNTER 2017-07-20 00:35 | Emergency (ER) | payer OTHER ==
[2017-07-20 01:34] LABS: URINE BILIRUBIN NEGATIVE (NEGATIVE); URINE BLOOD NEGATIVE (NEGATIVE); URINE CLARITY CLEAR (Clear); URINE COLOR STRAW (YELLOW); URINE GLUCOSE (UA) 50 mg/dL (Normal); URINE LEUKOCYTE ESTERASE NEG Leu/uL (Negative); URINE PROTEIN NEGATIVE (NEGATIVE); URINE UROBILINOGEN 0.2-1.0 mg/dL (0.2-1.0)
--- NOTE | 2017-07-20 01:41 | ED PDOC ---
HPI: Psych/Substance Abuse Time Seen by Provider: 07/20/17 00:45 Chief Complaint (Nursing): Psychiatric Evaluation Chief Complaint (Provider): Psychiatric Evaluation History Per: Patient History/Exam Limitations: no limitations Current Symptoms Are (Timing): Still Present Suicide/Self Injury Attempted (Context): None Modifying Factor(s): Alcohol Additional History Per: Friend Additional Complaint(s): 27 year old male brought in by EMS presents to ED for a psychiatric evaluation and has a past medical history of depression and alcohol abuse. Patient's roommates state that the patient appeared to be hallucinating, exhibited paranoid behavior, and vocalized suicidal ideation, prompting them to call 911. Patient himself believes that his roommates are "pulling a prank" on him regarding calling 911. Patient denies suicidal or homicidal ideation but admits to drinking earlier tonight. PCP: None Past Medical History Reviewed: Historical Data, Nursing Documentation, Vital Signs Vital Signs: Last Vital Signs Temp 98.2 F 07/20/17 00:42 Pulse 100 H 07/20/17 00:42 Resp 17 07/20/17 00:42 BP 127/58 L 07/20/17 00:42 Pulse Ox 97 07/20/17 00:42 - Medical History PMH: Anxiety, Depression Denies: Diabetes, Hepatitis, HIV, HTN, Chronic Kidney Disease, Seizures, Sexually Transmitted Disease Other PMH: alcohol abuse - Family History Family History: States: Unknown Family Hx - Living Arrangements Living Arrangements: With Friends/Others - Social History Alcohol: > 2 Drinks/Day (Patient states every few weeks, but has a history of alcohol abuse) - Home Medications Home Medications: Ambulatory Orders Medication Instructions Recorded Folic Acid 1 tab PO DAILY 02/15/17 - Allergies Allergies/Adverse Reactions: Allergies Allergy/AdvReac Type Severity Reaction Status Date / Time No Known Allergies Allergy Verified 02/15/17 00:39 Review of Systems ROS Statement: Except As Marked, All Systems Reviewed And Found Negative Psych: Positive for: Psychosis (friends note that patient was hallucinating). Negative for: Suicidal ideation (Patient denies but friends affirm), Other ((-) homicidal ideation) Physical Exam - Reviewed Nursing Documentation Reviewed: Yes Vital Signs Reviewed: Yes - Physical Exam Appears: Positive for: Non-toxic, No Acute Distress Skin: Positive for: Normal Color, Warm, Dry Eye Exam: Positive for: Normal appearance Cardiovascular/Chest: Positive for: Regular Rate, Rhythm. Negative for: Murmur Respiratory: Positive for: Normal Breath Sounds. Negative for: Respiratory Distress Gastrointestinal/Abdominal: Positive for: Normal Exam, Soft. Negative for: Tenderness Neurologic/Psych: Positive for: Alert, Oriented. Negative for: Motor/Sensory Deficits - Laboratory Results Result Diagrams: 07/20/17 01:30 07/20/17 01:30 - ECG O2 Sat by Pulse Oximetry: 97 (RA) Pulse Ox Interpretation: Normal Medical Decision Making Medical Decision Makin Initial impression: crisis evaluation Initial plan: * Acetaminophen * EtOH serum * Labs * UDrug screen * Salicylate * 1:1 OBS * UA 0130 EtOH level: 203 Patient will be referred to crisis 0227 Patient has been evaluated by crisis and deemed stable for discharge home as per Dr. Roberson. Dx: alcohol use disorder Scribe Attestation: Documented by Jennifer Grady, acting as a scribe for Liz Gallegos MD. Provider Scribe Attestation: All medical record entries made by the Scribe were at my direction and personally dictated by me. I have reviewed the chart and agree that the record accurately reflects my personal performance of the history, physical exam, medical decision making, and the department course for this patient. I have also personally directed, reviewed, and agree with the discharge instructions and disposition. Disposition - Clinical Impression Clinical Impression: Alcohol use disorder - Disposition Referrals: [facility] [Outside] [facility] [Outside] Disposition: Routine/Home Disposition Time: 02:30 Condition: IMPROVED Additional Instructions: follow up with your primary doctor in 1-2 days return to the ED with any worsening or concerning symptoms Instructions: Alcohol Abuse and Alcoholism (DC) Forms: [employer] ([place] Citizen)
[2017-07-20 01:43] LABS: BASO # 0.1 K/uL (0.0-0.2); EOS # 0.2 K/uL (0.0-0.7); HEMOGLOBIN 15.9 g/dL (12.0-18.0); LYMPH # 2.2 K/uL (1.0-4.3); LYMPH % 33.7 % (20.0-40.0); MEAN CELL VOLUME 91.6 fl (80.0-94.0); MEAN CORPUSCULAR HEMOGLOBIN 30.9 pg (27.0-31.0); MEAN CORPUSCULAR HGB CONC 33.7 g/dL (33.0-37.0); MONO # 0.4 K/uL (0.0-0.8); MONO % 5.7 % (0.0-10.0); NEUT # 3.7 K/uL (1.8-7.0); NEUT % 56.6 % (50.0-75.0); NRBC % 0.1 % (0.0-0.0); RBC 5.14 Mil/uL (4.40-5.90); RED CELL DISTRIBUTION WIDTH 12.9 % (11.5-14.5); WHITE BLOOD COUNT 6.6 K/uL (4.8-10.8)
[2017-07-20 01:46] VITALS: TEMP 98.2
[2017-07-20 01:52] LABS: ACETAMINOPHEN < 10.0 ug/ml (10.0-30.0); BLOOD UREA NITROGEN 16 mg/dl (9-20); CALCIUM 9.3 mg/dL (8.4-10.2); GFR AFRICAN-AMERICAN > 60; GFR NON-AFRICAN AMERICAN > 60; SALICYLATE < 1.0 mg/dl
[2017-07-20 01:56] LABS: BARBITURATES, UR NEGATIVE (NEGATIVE); BENZODIAZEPINES, UR NEGATIVE (NEGATIVE); OPIATES, UR NEGATIVE (NEGATIVE); PHENCYCLIDINE, UR NEGATIVE (NEGATIVE)
[2017-07-20 02:36] VITALS: BP 116/63; PULSE 84; RESP 16; O2SAT 95
== END 2017-07-20 02:47 | disposition home or self-care (01) ==
LOC: H.ER 00:35
DX: F10.10 Alcohol abuse, uncomplicated (principal); Y90.7 Blood alcohol level of 200-239 mg/100 ml; Z86.59 Personal history of other mental and behavioral disorders; Z00.8 Encounter for other general examination
CPT/HCPCS: 80048; 81003; 85025; 99282; G0480